=== PATIENT | male | born 1925 | race Caucasian/White ===

== ENCOUNTER → 2017-08-15 11:40 | Day surgery (SDC) | payer MEDICARE ==
[~2017-08-15 11:40] MED LIST: Diazepam TAB(*) 5 MG ONE; Flumazenil* 0.1 MG/ML 5 ML MDV ONE; Lidocaine 1% INJ* 10 MG/ML 30 ML SDV ONE; Midazolam* 1 MG/ML 5 ML VIAL (5 MG) ONE; Naloxone* 0.4 MG/ML 1 ML VIAL ONE; ceFAZolin 2 GM PREMIX (*) 2 GM/50 ML BAG IVPB ONE; ceFAZolin VIAL 1 GM in NS *SYRINGE * * 10 ML ONE; fentaNYL* 50 MCG/ML 2 ML VIAL (100 MCG VIAL) ONE
--- NOTE | 2017-08-16 05:01 | OP ---
OPERATIVE REPORT: DATE OF OPERATION: 08/15/17 DATE OF : [birth year] SURGEON: Cody Lopez MD ANESTHESIA: Local anesthesia with conscious sedation. PRE-OP DIAGNOSES: Sick sinus syndrome, pacemaker at elective replacement indicator. POST-OP DIAGNOSES: Sick sinus syndrome, pacemaker at elective replacement indicator. OPERATIVE PROCEDURE: Dual-chamber pacemaker generator change. ESTIMATED BLOOD LOSS: Nil. COMPLICATIONS: None. INDICATIONS: The patient is an 89-year-old gentleman with a history of sick sinus syndrome. He had a pacemaker placed in 2007. He has been followed closely in my office. The patient has reached elec tive replacement indicator and generator change was recommended. DESCRIPTION OF PROCEDURE: The patient was brought to the operating room in a fasting state. Informe d consent had been obtained prior to the procedure. All labs were reviewed. The patient was placed supine on the procedure table. His left deltopectoral area was cleaned and draped in the usual fashi on. A 1% lidocaine was used for local anesthesia. A 4-cm incision was made over the previous incisi on site and blunt dissection was carried down to the pectoral fascia. The fascia was opened and the pacemaker was removed from the pocket. The pacemaker was detached from the atrial and ventricular le ads. The explanted generator is a [employer] model ADDR01, serial number [id number]. The atrial and ventricular leads were tested and noted to be functioning normally. A new generator was attached dipti ropriately to the atrial and ventricular leads. The new generator is a Med[employer]onic model ADDR01, seria l number [id number]. The device was placed in the pocket. The surgical incision was closed in 3 lay ers. The patient was returned to the holding area in stable condition. [id number]/[facility] #: [id number]
== END | disposition home or self-care (01) ==
LOC: CHICATH 11:40
PROVIDERS: ATTEND Specialist
DX: I49.5 Sick sinus syndrome (principal); Z45.010 Encounter for checking and testing of cardiac pacemaker pulse generator [battery]; I08.3 Combined rheumatic disorders of mitral, aortic and tricuspid valves; Z87.891 Personal history of nicotine dependence; I48.91 Unspecified atrial fibrillation; E11.9 Type 2 diabetes mellitus without complications; Z79.84 Long term (current) use of oral hypoglycemic drugs; M81.0 Age-related osteoporosis without current pathological fracture; Z79.899 Other long term (current) drug therapy
CPT/HCPCS: 33228; 88300; 99156; A9270-GY; C1785; J0690; J2250; J2310; J3010